=== PATIENT | female | born 1965 | race African-American/Black ===

== ENCOUNTER 2017-01-20 05:30 | Inpatient (IN) | payer OTHER ==
[~2017-01-20] VITALS: Ht 172.7 cm; Wt 81.6 kg
[2017-01-20 07:12] LABS: INR 0.9; PROTHROMBIN TIME 9.5 sec
[2017-01-20 07:13] LABS: HEMATOCRIT. 41.1 % (36.0-48.0); MEAN CORPUSCULAR HEMOGLOBIN 27.2 pg (28.0-32.0); MEAN CORPUSCULAR HGB CONC 31.6 g/dL (31.0-37.0); MEAN CORPUSCULAR VOLUME 86.1 fL (81.0-99.0); MEAN PLATELET VOLUME 8.6 fl (7.4-10.4); PLATELET 125 x1000/uL (130-400); RED BLOOD CELL COUNT 4.77 mill/uL (4.2-5.4); RED CELL DISTRIBUTION WIDTH 17.9 % (11.6-14.6); WHITE BLOOD COUNT 11.9 x1000/uL (4.5-11.0)
[2017-01-20 07:15] LABS: DIFFERENTIAL COMMENT 1
[2017-01-20 07:21] LABS: ALANINE AMINOTRANSFERASE 31 IU/L (13-61); ALBUMIN 2.9 g/dL (3.4-5.0); ANION GAP 25; CALCIUM 8.3 mg/dL (8.5-10.1); CARBON DIOXIDE 18 mEq/L (21-32); CHLORIDE 105 mEq/L (98-107); INDEX HEMOLYSI 1 (1-3); INDEX ICTERIC 1 (1-4); INDEX LIPEMIC 1 (1-3); NT PRO B-TYPE NATRIURETIC PEP 249 pg/mL (5-125); UREA NITROGEN BLOOD 19 mg/dL (7-21); eGFR > 60 mL/min (>60)
[2017-01-20 07:22] LABS: LACTIC ACID 6.4 mmol/L (0.4-2.0)
[2017-01-20 07:23] LABS: ETHANOL BLOOD 347 mg/dL; TROPONIN I 0.83 ng/mL (0.00-0.04)
[2017-01-20] MEDS ORDERED: ASPIRIN 81MG TABLET PO ONE (07:30)
[2017-01-20 07:39] LABS: ANISOCYTOSIS 1+; PLATELET ESTIMATE SLIGHTLY DECREASED
[2017-01-20] MEDS ORDERED: SODIUM CHLORIDE 0.9% 1000ML BAG (SEPSIS BOLUS) IV ONE (08:15)
[2017-01-20 08:26] LABS: CLARITY URINE TURBID (CLEAR); COLOR URINE DARK YELLOW (YELLOW); GLUCOSE URINE NEGATIVE (NEGATIVE); KETONES URINE NEGATIVE (NEGATIVE); LEUKOCYTE ESTERASE URINE 1+ (NEGATIVE); NITRITE URINE NEGATIVE (NEGATIVE); OCCULT BLOOD URINE 2+ (NEGATIVE); PH URINE 5.5 (4.5-8.0); PROTEIN URINE 4+ (NEGATIVE); SPECIFIC GRAVITY URINE 1.026 (1.005-1.030)
[2017-01-20 08:54] LABS: *AMPHETAMINES SCREEN URINE NEGATIVE (NEGATIVE); *BARBITURATES SCREEN URINE NEGATIVE (NEGATIVE); *BENZODIAZEPINES SCREEN URINE PRESUMTIVE POSITIVE (NEGATIVE); *COCAINE SCREEN URINE NEGATIVE (NEGATIVE); CANNABINOID URINE SCREEN PRESUMTIVE POSITIVE (NEGATIVE); ECSTASY MDMA SCREEN URINE NEGATIVE (NEGATIVE); METHADONE URINE SCREEN NEGATIVE (NEGATIVE); OPIATES URINE SCREEN NEGATIVE (NEGATIVE); PHENCYCLIDINE URINE SCREEN NEGATIVE (NEGATIVE)
[2017-01-20 09:19] LABS: BACTERIA URINE 4+; SQUAMOUS EPITHELIAL CELL URINE RARE /lpf (RARE/1+)
[2017-01-20 09:20] LABS: RBC URINE 0-2 /hpf (0-2); WBC URINE 25-50 /hpf (0-2)
[2017-01-20] MEDS ORDERED: NA PHOS,M-B/NA PHOS,DI-BA ENEMA 118ML PR PRN (09:45)
[2017-01-20] MEDS ORDERED: MAGNESIUM/ALUMINUM HYDROXIDE/SIMETHICONE 30ML UDC PO PRN (09:45)
[2017-01-20] MEDS ORDERED: GUAIFENESIN 200MG/10ML SUGAR FREE UDC PO PRN (09:45)
[2017-01-20] MEDS ORDERED: HYDROMORPHONE HCL/PF 2MG/ML CPJ IV PRN (09:45)
[2017-01-20] MEDS ORDERED: DOCUSATE SODIUM 100MG CAPSULE PO PRN (09:45)
[2017-01-20] MEDS ORDERED: DIPHENHYDRAMINE 50MG/ML VIAL IV PRN (09:45)
[2017-01-20] MEDS ORDERED: IPRATROPIUM/ALBUTEROL 0.5-3(2.5)MG/3ML NEB INH PRN (09:45)
[2017-01-20] MEDS: ENOXAPARIN 40MG/0.4ML SYR SUBCUT SCH (11:15)
[2017-01-20 11:23] VITALS: BP 145/86
[2017-01-20 12:00] VITALS: BP 138/97
[2017-01-20 12:28] LABS: ANION GAP 21; CALCIUM 7.5 mg/dL (8.5-10.1); CARBON DIOXIDE 17 mEq/L (21-32); CHLORIDE 110 mEq/L (98-107); INDEX HEMOLYSI 1 (1-3); INDEX ICTERIC 1 (1-4); INDEX LIPEMIC 1 (1-3); UREA NITROGEN BLOOD 18 mg/dL (7-21); eGFR > 60 mL/min (>60)
[2017-01-20] MEDS ORDERED: POTASSIUM CHLORIDE 20MEQ TABLET SR PO SCH (12:45)
[2017-01-20] MEDS ORDERED: ONDANSETRON HCL 4MG/2ML VIAL IV PRN (13:30)
[2017-01-20] MEDS: ACETAMINOPHEN 325MG TABLET PO PRN (14:52)
[2017-01-20] MEDS: CLONIDINE 0.1MG TABLET PO PRN (14:52)
[2017-01-20 15:34] LABS: CREATINE KINASE MB FRACTION 2.2 ng/mL (0.5-3.6)
[2017-01-20 15:49] LABS: TROPONIN I 0.72 ng/mL (0.00-0.04)
[2017-01-20 16:59] VITALS: BP 163/112
[2017-01-20 20:00] VITALS: BP 194/120
[2017-01-20] MEDS: LORAZEPAM 2MG/ML CPJ IV PRN (20:41)
[2017-01-20] MEDS: AMLODIPINE 5MG TABLET PO SCH (20:42)
[2017-01-20 23:31] LABS: CREATINE KINASE 161 IU/L (26-192); CREATINE KINASE MB FRACTION 1.7 ng/mL (0.5-3.6)
[2017-01-20 23:32] LABS: TROPONIN I 0.75 ng/mL (0.00-0.04)
[2017-01-21] VITALS (7 sets, daily range): BP systolic 138–166; BP diastolic 80–119
[2017-01-21] MEDS: LORAZEPAM 2MG/ML CPJ IV PRN (02:13)
[2017-01-21] MEDS: CLONIDINE 0.1MG TABLET PO PRN ×2 (05:10→11:36)
[2017-01-21] MEDS: ACETAMINOPHEN 325MG TABLET PO PRN ×3 (05:10→20:38)
[2017-01-21 07:02] LABS: ALANINE AMINOTRANSFERASE 27 IU/L (13-61); ALBUMIN 2.2 g/dL (3.4-5.0); ANION GAP 16; CARBON DIOXIDE 27 mEq/L (21-32); CHLORIDE 94 mEq/L (98-107); CREATINE KINASE 171 IU/L (26-192); CREATINE KINASE MB FRACTION 0.7 ng/mL (0.5-3.6); HDL CHOLESTEROL 120 mg/dL (40-59); INDEX HEMOLYSI 1 (1-3); INDEX ICTERIC 1 (1-4); INDEX LIPEMIC 1 (1-3); LDL CHOLESTEROL 46 mg/dL (5-100); T4 FREE 0.65 ng/dL (0.76-1.46); THYROID STIMULATING HORMONE 0.63 uIU/mL (0.36-3.74); TRIGLYCERIDE 142 mg/dL (0-150); UREA NITROGEN BLOOD 8 mg/dL (7-21); eGFR > 60 mL/min (>60)
[2017-01-21 07:36] LABS: HEMATOCRIT. 33.9 % (36.0-48.0); MEAN CORPUSCULAR HEMOGLOBIN 27.3 pg (28.0-32.0); MEAN CORPUSCULAR HGB CONC 32.6 g/dL (31.0-37.0); MEAN CORPUSCULAR VOLUME 83.6 fL (81.0-99.0); MEAN PLATELET VOLUME 8.9 fl (7.4-10.4); PLATELET 56 x1000/uL (130-400); RED BLOOD CELL COUNT 4.05 mill/uL (4.2-5.4); RED CELL DISTRIBUTION WIDTH 17.2 % (11.6-14.6); WHITE BLOOD COUNT 12.5 x1000/uL (4.5-11.0)
[2017-01-21] MEDS ORDERED: POTASSIUM CHLORIDE 20MEQ TABLET SR PO NR (08:00)
[2017-01-21 08:28] LABS: DIFFERENTIAL COMMENT 1
[2017-01-21] MEDS ORDERED: REGADENOSON 0.4 MG/5 ML IV NR (08:45)
[2017-01-21] MEDS: ENOXAPARIN 40MG/0.4ML SYR SUBCUT SCH (09:00)
[2017-01-21] MEDS: AMLODIPINE 5MG TABLET PO SCH ×2 (10:11→20:38)
[2017-01-21] MEDS: LOSARTAN POTASSIUM 50 MG TABLET PO SCH ×2 (10:11→20:38)
[2017-01-21] MEDS: ASPIRIN 81MG EC TABLET PO SCH (10:11)
[2017-01-21 13:01] LABS: ANISOCYTOSIS 1+; PLATELET ESTIMATE DECREASED
[2017-01-21] MEDS: METRONIDAZOLE 500 MG PREMIX 100 ML IV SCH ×2 (13:45→21:48)
[2017-01-21] MEDS: HYDROCODONE/ACETAMINOPHEN 5/325MG TABLET PO PRN (13:51)
[2017-01-21] MEDS ORDERED: LEVOFLOXACIN 500MG PREMIX 100 ML IV SCH ×2 (18:00→18:30)
[2017-01-21] MEDS: CLONIDINE 0.3MG TABLET PO PRN (18:01)
[2017-01-22] VITALS: BP 130/86
[2017-01-22 04:00] VITALS: BP 153/108
[2017-01-22] MEDS: HYDROCODONE/ACETAMINOPHEN 5/325MG TABLET PO PRN ×2 (04:22→11:33)
[2017-01-22] MEDS: CLONIDINE 0.3MG TABLET PO PRN (05:13)
[2017-01-22] MEDS: METRONIDAZOLE 500 MG PREMIX 100 ML IV SCH ×2 (05:15→14:00)
[2017-01-22 07:08] LABS: HEMATOCRIT. 34.5 % (36.0-48.0); HEMOGLOBIN. 11.2 g/dL (12.0-16.0); MEAN CORPUSCULAR HEMOGLOBIN 27.1 pg (28.0-32.0); MEAN CORPUSCULAR HGB CONC 32.6 g/dL (31.0-37.0); MEAN PLATELET VOLUME 11.1 fl (7.4-10.4); PLATELET 56 x1000/uL (130-400); RED BLOOD CELL COUNT 4.15 mill/uL (4.2-5.4); WHITE BLOOD COUNT 12.6 x1000/uL (4.5-11.0)
[2017-01-22 07:43] LABS: DIFFERENTIAL COMMENT 1
[2017-01-22 08:00] VITALS: BP 128/92
[2017-01-22 08:29] LABS: CALCIUM 7.8 mg/dL (8.5-10.1); CHLORIDE 93 mEq/L (98-107); INDEX HEMOLYSI 1 (1-3); INDEX ICTERIC 1 (1-4); INDEX LIPEMIC 1 (1-3)
[2017-01-22] MEDS: AMLODIPINE 5MG TABLET PO SCH (08:30)
[2017-01-22 08:52] LABS: ANION GAP 17; CARBON DIOXIDE 26 mEq/L (21-32); CREATINE KINASE 99 IU/L (26-192); CREATINE KINASE MB FRACTION 0.8 ng/mL (0.5-3.6); MAGNESIUM 1.3 mg/dL (1.8-2.4); UREA NITROGEN BLOOD 11 mg/dL (7-21); eGFR > 60 mL/min (>60)
[2017-01-22] MEDS ORDERED: DOBUTAMINE 250MG PREMIX 250 ML IV ONE ×2 (09:00→12:26)
[2017-01-22] MEDS: ENOXAPARIN 40MG/0.4ML SYR SUBCUT SCH (09:00)
[2017-01-22] MEDS: LOSARTAN POTASSIUM 50 MG TABLET PO SCH (09:48)
[2017-01-22] MEDS: ASPIRIN 81MG EC TABLET PO SCH (09:48)
[2017-01-22] MEDS ORDERED: POTASSIUM CHLORIDE INJ 40 MEQ in DEXT 5% WATER 250 ML IV NR (11:30)
[2017-01-22 12:00] VITALS: BP 140/95
[2017-01-22 14:05] LABS: PLATELET ESTIMATE DECREASED
[2017-01-22 14:06] LABS: ANISOCYTOSIS 1+
[2017-01-22 14:39] VITALS: BP 139/90
== END 2017-01-22 16:00 | disposition home or self-care (01) | DRG 203 ==
LOC: ER 05:31 → 8WST 10:32 → EDBD 10:32
PROVIDERS: ADMIT Internal Medicine; ATTEND Internal Medicine
DX: M94.0 Chondrocostal junction syndrome [Tietze] (principal); G93.40 Encephalopathy, unspecified; E87.2 Acidosis; R65.10 Systemic inflammatory response syndrome (SIRS) of non-infectious origin without acute organ dysfunction; R56.9 Unspecified convulsions; E11.9 Type 2 diabetes mellitus without complications; D64.9 Anemia, unspecified; I10 Essential (primary) hypertension; F10.239 Alcohol dependence with withdrawal, unspecified; I73.9 Peripheral vascular disease, unspecified; E78.5 Hyperlipidemia, unspecified; T51.0X1A Toxic effect of ethanol, accidental (unintentional), initial encounter; Y90.9 Presence of alcohol in blood, level not specified; M19.90 Unspecified osteoarthritis, unspecified site; F17.210 Nicotine dependence, cigarettes, uncomplicated; G43.909 Migraine, unspecified, not intractable, without status migrainosus; J45.909 Unspecified asthma, uncomplicated; I51.7 Cardiomegaly; Z96.641 Presence of right artificial hip joint; K21.9 Gastro-esophageal reflux disease without esophagitis; F10.229 Alcohol dependence with intoxication, unspecified; Z82.49 Family history of ischemic heart disease and other diseases of the circulatory system; Z83.3 Family history of diabetes mellitus; Z88.0 Allergy status to penicillin
CPT/HCPCS: 36415; 70450; 71010; 78452; 80048; 80053; 80061; 80305; 81001; 82550; 82553; 83605; 83735; 83880; 84439; 84443; 84484; 85025; 85610; 87040; 87077; 87086; 87186; 87493; 93005; 93017; 93306; 99291; A9500; G0482; J1170; J1250; J1650; J1956; J2060; J2405; J3480; J3490; J7030; J7040; J7060

== ENCOUNTER 2017-02-24 12:39 | Emergency (ER) | payer OTHER ==
[~2017-02-24] VITALS: Ht 172.7 cm; Wt 100.0 kg
[2017-02-24] MEDS ORDERED: KETOROLAC 60MG/2ML VIAL IM ONE (14:15)
[2017-02-24] MEDS ORDERED: CLONIDINE 0.2MG TABLET PO ONE (14:15)
[2017-02-24 16:28] VITALS: BP 135/72
== END 2017-02-24 18:12 | disposition home or self-care (01) ==
LOC: ER 13:36
DX: R51 Headache (principal); F12.10 Cannabis abuse, uncomplicated; E11.9 Type 2 diabetes mellitus without complications; F10.20 Alcohol dependence, uncomplicated; M19.90 Unspecified osteoarthritis, unspecified site; I11.9 Hypertensive heart disease without heart failure; F17.200 Nicotine dependence, unspecified, uncomplicated; K76.9 Liver disease, unspecified; Z91.14 Patient's other noncompliance with medication regimen
CPT/HCPCS: 70450; 96372; 99284; J1885; Z7610